=== PATIENT | female | born 1995 | race Caucasian/White ===

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

== ENCOUNTER 2017-02-24 20:09 | Emergency (ER) | payer OTHER ==
[~2017-02-24] VITALS: Ht 170.2 cm; Wt 76.8 kg
[2017-02-24] MEDS ORDERED: CELEXA40 MG PO (20:36)
[2017-02-24] MEDS ORDERED: SEROQUEL 1100 MG/TAB PO (20:36)
[2017-02-24 20:37] VITALS: BP 132/83; PULSE 83; TEMP 99.7
== END 2017-02-24 22:27 | disposition home or self-care (01) ==
LOC: COL.ER 20:09
DX: S62.001A Unspecified fracture of navicular [scaphoid] bone of right wrist, initial encounter for closed fracture (principal); S60.221A Contusion of right hand, initial encounter; F32.9 Major depressive disorder, single episode, unspecified; F17.210 Nicotine dependence, cigarettes, uncomplicated; W22.09XA Striking against other stationary object, initial encounter; Y92.009 Unspecified place in unspecified non-institutional (private) residence as the place of occurrence of the external cause